=== PATIENT | female | born 1980 | race Caucasian/White ===

== ENCOUNTER 2017-11-11 20:51 | Emergency (ER) | payer OTHER ==
[2017-11-11 21:08] VITALS: RESP 16; TEMP 98.2
[2017-11-11] MEDS ORDERED: NS 1,000 ML IV ONE (21:09)
[2017-11-11 21:31] LABS: PLATELET COUNT 260 10^3/uL (150-400)
--- NOTE | 2017-11-11 21:41 | EDPHY ---
H & P Time Seen by Provider: 11/11/17 20:58 HPI/ROS: 37 yo F presents c/o episode of vomiting this afternoon, emesis was black. Pt states she had gone for a long run, and on the way back began to feel very anxious, this is not uncommon for her, she states she has been very stressed this week. Once she got home she had an episode of vomiting and it was black, she also had some loose stools, not tarry and no blood. No fever or chills. Review of systems As per HPI General no fever no chills no weakness HEENT no eye pain no eye discharge. No eye redness, no sore throat Respiratory no cough, no shortness of breath Cardiac no chest pain, no peripheral edema GI no abdominal pain, positive diarrhea, no constipation, positive nausea positive vomiting no dysuria no frequency Musculoskeletal no myalgias, no joint pain Heme no easy bruising, no easy bleeding Endo no polyuria, no polydipsia Skin no rashes, no pruritus Neuro no syncope, no dizziness, no headaches Psych is no suicidal ideation, no homicidal ideation Past Medical/Surgical History: hiatal hernia hx of severe vomiting episodes , last one she recalls was in [place] in 2016 Social History: no alcohol or drug use Smoking Status: Never smoked Physical Exam: 37-year-old female alert and oriented no acute distress nontoxic appearance, Vital signs stable, afebrile HEENT atraumatic normocephalic, extraocular muscles intact, anicteric Oropharynx negative for erythema negative exudate, tolerating her own secretions Neck supple no meningismus Lungs clear to auscultation bilaterally Heart regular rate and rhythm without murmur rub or gallop Abdomen nondistended normoactive bowel sounds soft nontender Back no CVA tenderness, no step-offs, no spinal tenderness Extremities no cyanosis clubbing or edema Neuro alert and oriented, no focal deficits Constitutional: Initial Vital Signs Temperature (C) 36.8 C 11/11/17 21:03 Heart Rate 80 11/11/17 21:03 Respiratory Rate 16 11/11/17 21:03 Blood Pressure 137/100 H 11/11/17 21:03 O2 Sat (%) 96 11/11/17 21:03 O2 Delivery Mode Room Air Allergies/Adverse Reactions: erythromycin base [Erythromycin Base] Allergy (Intermediate, Verified 09/12/15 15:21) Home Medications: Medication Instructions Recorded Taytulla 1 mg-20 Mcg Capsule 11/11/17 Medical Decision Making ED Course/Re-evaluation: Patient was seen and evaluated for an episode of vomiting black emesis. Her physical exam was benign, with no abdominal pain, no tachycardia, afebrile, initially an elevated blood pressure which return to normal blood pressure. Labs were sent WBC 13, likely a stress reaction Hemoglobin 14.8 CMP, lipase within normal limits She was given 1 L normal saline. She had no pain or nausea while in the department. Orthostatics negative Impression Gastritis Plan DC home Stop all ibuprofen, Excedrin, NSAIDs Recommend using her ranitidine 150 twice daily Follow-up with primary care physician Return if continued vomiting black and or black tarry stools and or bright red blood in stool and/or emesis. Differential Diagnosis: Differential diagnosis considered but not limited to: Pancreatitis, cholecystitis, appendicitis, upper GI bleed, Vale-Muniz tear, gastritis, duodenitis, peptic ulcer disease - Data Points Laboratory Results: Laboratory Results 11/11/17 21:20 11/11/17 21:20 11/11/17 11/11/17 21:20 21:20 WBC 13.00 10^3/uL H 10^3/uL (3.80-9.50) RBC 4.78 10^6/uL 10^6/uL (4.18-5.33) Hgb 14.8 g/dL g/dL (12.6-16.3) Hct 43.7 % % (38.0-47.0) MCV 91.4 fL fL (81.5-99.8) MCH 31.0 pg pg (27.9-34.1) MCHC 33.9 g/dL g/dL (32.4-36.7) RDW 12.8 % % (11.5-15.2) Plt Count 260 10^3/uL 10^3/uL (150-400) MPV 11.1 fL fL (8.7-11.7) Neut % (Auto) 82.8 % H % (39.3-74.2) Lymph % (Auto) 12.5 % L % (15.0-45.0) Curry % (Auto) 4.0 % L % (4.5-13.0) Eos % (Auto) 0.1 % L % (0.6-7.6) Baso % (Auto) 0.3 % % (0.3-1.7) Nucleat RBC Rel Count 0.0 % % (0.0-0.2) Absolute Neuts (auto) 10.76 10^3/uL H 10^3/uL (1.70-6.50) Absolute Lymphs (auto) 1.63 10^3/uL 10^3/uL (1.00-3.00) Absolute Monos (auto) 0.52 10^3/uL 10^3/uL (0.30-0.80) Absolute Eos (auto) 0.01 10^3/uL L 10^3/uL (0.03-0.40) Absolute Basos (auto) 0.04 10^3/uL 10^3/uL (0.02-0.10) Absolute Nucleated RBC 0.00 10^3/uL 10^3/uL (0-0.01) Immature Gran % 0.3 % % (0.0-1.1) Immature Gran # 0.04 10^3/uL 10^3/uL (0.00-0.10) Sodium 141 mEq/L mEq/L (135-145) Potassium 4.5 mEq/L mEq/L (3.5-5.2) Chloride 104 mEq/L mEq/L (97-110) Carbon Dioxide 24 mEq/l mEq/l (22-31) Anion Gap 13 mEq/L mEq/L (8-16) BUN 21 mg/dL mg/dL (7-23) Creatinine 0.9 mg/dL mg/dL (0.6-1.0) Estimated GFR > 60 Glucose 99 mg/dL mg/dL (70-100) Calcium 10.0 mg/dL mg/dL (8.5-10.4) Total Bilirubin 0.5 mg/dL mg/dL (0.1-1.4) AST 35 IU/L IU/L (14-46) ALT 39 IU/L IU/L (9-52) Alkaline Phosphatase 52 IU/L IU/L (38-126) Total Protein 8.0 g/dL g/dL (6.3-8.2) Albumin 4.7 g/dL g/dL (3.5-5.0) Lipase 79 IU/L IU/L (23-300) Medications Given: Discontinued Medications Sodium Chloride (Ns) 1,000 mls @ 0 mls/hr IV ONCE ONE; Wide Open PRN Reason: Protocol Stop: 11/11/17 21:10 Last Admin: 11/11/17 21:10 Dose: 1,000 mls Departure - Departure Disposition: Home, Routine, Self-Care Clinical Impression: Gastritis Condition: Good Instructions: Ranitidine (By mouth), Gastritis (ED) Additional Instructions: Related TN twice a day until follow-up with primary care physician. Avoid all NSAIDs Referrals: NONE *PRIMARY CARE P,. [Primary Care Provider] - As per Instructions
[2017-11-11 22:16] VITALS: BP 108/72; PULSE 57; O2SAT 95
== END 2017-11-11 22:15 | disposition home or self-care (01) ==
LOC: CED 20:51
DX: K29.70 Gastritis, unspecified, without bleeding (principal); E86.9 Volume depletion, unspecified
CPT/HCPCS: 80053-PO; 83690-PO; 85025-PO